=== PATIENT | female | born 1965 | race Caucasian/White ===

== ENCOUNTER 2023-07-20 22:09 | Emergency (ER) | payer BC, SELFPAY ==
[2023-07-20 22:13] VITALS: BP 156/82; PULSE 101; RESP 18; TEMP 36.6; O2SAT 100; BMI 24.3
[2023-07-20 22:24] VITALS: PULSE 84; O2SAT 96
[2023-07-20 22:25] VITALS: BP 155/81; PULSE 88; O2SAT 97
--- NOTE | 2023-07-20 22:26 | ED_ITS ---
HPI - Allergic Reaction General Chief complaint: Allergic Reaction Stated complaint: lips swelling, allergic reaction Time Seen by Provider: 07/20/23 22:10 Source: patient Mode of arrival: Ambulatory History of Present Illness HPI narrative: 58-year-old female nonsmoker with noncontributory medical history presents with a chief complaint of swelling of her lower lip that started a few hours ago. She states she has no swelling of her tongue, face or difficulty swallowing. No trouble breathing or cough. No rash or hives. No GI symptoms such as nausea, vomiting or diarrhea. She denies any new lotions, soaps or medications but stat es maybe the almond milk she had tinnitus something new for her. She takes no prescription medications. She states about 1 month ago she had a relatively similar situation but only had swelling of the right side of her upper lip with no other symptoms which eventually resolved without specific treatment other than [id number] Benadryl. She does admit that she took some Benadryl prior to her arrival tonight. Related Data Previous Rx's Medication Instructions Recorded prednisone 10 mg tablet See Rx Instructions .Route 07/21/23 .COMPLEX #30 tabs Allergies Allergy/AdvReac Type Severity Reaction Status Date / Time No Known Drug Allergies Allergy Verified 07/20/23 22:21 Review of Systems Review of Systems Narrative: GENERAL: Denies chills, fatigue, malaise, fever, sweats. HEENT: See HPIsee HPIDenies dyspnea, cough, wheezing, hemoptysis, sputum. CARDIOVASCULAR: Denies chest pain, palpitations, orthopnea, edema, GASTROINTESTINAL: Denies nausea, vomiting, abdominal pain, diarrhea, c onstipation, melena. : Denies dysuria, frequency, incontinence, hematuria, urinary retention. MUSCULOSKELETAL: denies weakness, joint pain, or bony pain SKIN: see HPI NEUROLOGIC: Denies weakness, headache, numbness, change in speech, confusion, seizures, incoordination. PSYCHIATRIC: No concerning psychosocial issues. 12 point review of systems is negative except for those stated above Patient History Social History Smoking Status: Never smoker Smoking Status: Never smoker alcohol intake frequency: a few times a month Substance Use Type: does not use Exam Narrative Exam Narrative: GENERAL: [58] year old patient appears stated age. Well-developed patient, in mild distress. HEAD: Atraumatic. Normocephalic. EYES: Pupils equal round and reactive. Extraocular motions intact. No scleral icterus. No injection or drainage. ENT: Moderate lower lip swelling, no face, tongue or throat involvement Nose without bleeding, purulent drainage. Throat without erythema, tonsillar hypertrophy or exudate. Airway patent. NECK: Trachea midline. Non tender CARDIOVASCULAR: Regular rate and rhythm without murmurs, gallops, or rubs. RESPIRATORY: Clear to auscultation. Breath sounds equal bilaterally. No wheezes, rales, or rhonchi. GASTROINTESTINAL: Abdomen soft, non-tender, nondistended. EXTREMITIES: No edema or joint tenderness. BACK: Nontender without deformity or crepitance. No flank tenderness. NEURO: AOx3. SKIN: No rash or erythema of visible areas Initial Vital Signs Initial Vital Signs: Vital Signs Temperature 97.9 F 07/20/23 22:13 Pulse Rate 101 H 07/20/23 22:13 Respiratory Rate 18 07/20/23 22:13 Blood Pressure 156/82 H 07/20/23 22:13 Pulse Oximetry 100 07/20/23 22:13 Oxygen Delivery Method Room Air 07/20/23 22:13 Course Orders Ordered: ED Orders 07/20/23 22:21 Complement C3 Stat Complement C4 Stat Famotidine (Famotidine 20 Mg/2 Ml Vial) 20 mg IV NOW IESHA Last Admin: 07/20/23 22:38 Dose: 20 mg Documented By: SARAH Discontinued Medications Dexamethasone (Dexamethasone 10 Mg/Ml Vial) 10 mg IV NOW ONE Stop: 07/20/23 22:22 Last Admin: 07/20/23 22:39 Dose: 10 mg Documented By: SARAH Tranexamic Acid 1,000 mg/ (Sodium Chloride) 100 mls @ 200 mls/hr IV NOW ONE Stop: 07/20/23 22:50 Last Infusion: 07/20/23 23:05 Dose: 0 mls/hr Documented By: Admin: 07/20/23 22:38 Dose: 200 mls/hr Documented By: SARAH Vital Signs Vital signs: Vital Signs - 8 hr 07/20/23 22:13 07/20/23 22:24 07/20/23 22:25 Temperature 97.9 F Pulse Rate 101 H 84 88 Respiratory Rate 18 Blood Pressure 156/82 H Pulse Oximetry 100 96 97 Oxygen Delivery Method Room Air 07/20/23 22:25 07/20/23 22:30 07/20/23 22:30 Temperature Pulse Rate 82 Respiratory Rate Blood Pressure 155/81 H 153/80 H Pulse Oximetry 97 Oxygen Delivery Method 07/20/23 23:00 07/20/23 23:00 Temperature Pulse Rate 80 Respiratory Rate Blood Pressure 154/70 H Pulse Oximetry 97 Oxygen Delivery Method MDM - Allergic Reaction MDM Narrative Medical decision making narrative: [58] year old patient presents with swelling of lower lip no other symptoms Multiple etiologies for patient's symptoms considered including, but not limited to: [Allergic reaction versus angioedema versus other] No prior Charts reviewed in our EMR Primary Historian: patient Labs reviewed and interpreted by myself: C3/C4 sent out Patient's symptoms improved over duration of stay with above-stated therapies. History and physical exam are reassuring, no obvious trigger, isolated to lower lip with no signs of anaphylaxis, no tongue, throat, no trouble swallowing or breathing, no rash or GI complaints. Multiple diagnoses considered including allergic reaction versus angioedema. Allergic reaction considered, especially given improvement of symptoms with above-stated therapies. No signs of anaphylaxis. Angioedema considered still, unlikely to be a histamine mediated angioedema given lack of more widespread symptoms. Bradycardia mediated considered, treatment with TXA based on this. She is observed for a few hours and has significant improvement in symptoms. Extensive return precautions discussed, patient encouraged to try to avoid almond milk in the event that it is a trigger, labs sent out but not needed for decisions tonight, no indication for further treatment or hospitalization. Prescription for prednisone sent to her pharmacy of choice Findings and discharge diagnosis discussed with patient/family followed by verbalization of understanding Return precautions discussed with patient/family whom verbalize understanding of diagnosis and plan Discharge Plan Departure Patient Disposition: Home Clinical Impression: Allergic reaction, Angioedema Instructions: Angioedema Activity Restrictions/Additional Instructions: *You have been diagnosed with [allergic reaction or angioedema] *What to do: *Please continue to take your regular medications as directed. [ x] New medication prescriptions sent to your pharmacy: [[facility]] [ ] New medication written as a paper prescription [ ] No new medications given *Please consider the routine use of over the counter antihistamines over the next few days 1. H1 blockers: Benadryl (Diphenhydramine), Zyrtec (Cetirizine), Lisa (Fexofenadine) or Claritin (Loratadine) along with, 2. H2 blockers: Famotidine or Cimetidine *If you can please avoid what triggered your reaction today *Please follow up with your primary care provider in 2-3 days, call for an appointment. Let them know you were seen in the Emergency Department and that we ask that you be seen in follow up. We will electronically transmit a record of today's note if your PCP is in our system *If you do not have a primary care provider please contact the [facility] Resource line at [phone]. They will ask some questions about your medical history and help get you set up with a doctor in the community. *Return to Emergency Department if you should have any new, worsening or concerning symptoms, such as swelling of tongue, throat, trouble breathing, or other concerning symptoms Prescriptions: New prednisone 10 mg tablet See Rx Instructions .ROUTE .COMPLEX Qty: 30 0RF Rx Instructions: Day 1,2,3: 40mg PO Daily Day 4,5,6: 30mg PO Daily Day 7,8,9: 20mg PO Daily Day 10,11,12: 10mg PO Daily #30 Stand Alone Forms: Patient Portal/API
[2023-07-20 22:30] VITALS: BP 153/80; PULSE 82; O2SAT 97
[2023-07-20] MEDS: FAMOTIDINE 20 MG/2 ML VIAL IV (22:38)
[2023-07-20] MEDS: TRANEXAMIC ACID 1,000 MG in SODIUM CHLORIDE 0.9% 100 ML 200 MG IV (22:38)
[2023-07-20] MEDS: DEXAMETHASONE 10 MG/ML VIAL IV (22:39)
[2023-07-20 23:00] VITALS: BP 154/70; PULSE 80; O2SAT 97
[2023-07-21 00:16] VITALS: BP 135/69; PULSE 76; RESP 20; O2SAT 96
[2023-07-22 05:28] LABS: Complement C3 105 mg/dL (82-167)
== END 2023-07-21 00:15 | disposition home or self-care (01) ==
PROVIDERS: Emergency Provider Emergency Medicine
DX: T78.40XA Allergy, unspecified, initial encounter (principal); T78.3XXA Angioneurotic edema, initial encounter
CPT/HCPCS: 36415; 86160; 96365; 96375; 99284; J1100

== ENCOUNTER 2023-12-11 08:17 | Day surgery (SDC) | payer BC, SELFPAY ==
[2023-12-11 08:44] VITALS: BP 134/78; PULSE 82; RESP 16; TEMP 36.7; O2SAT 98
[2023-12-11] MEDS: LACTATED RINGERS 1,000 ML 42 ML IV (08:48)
--- NOTE | 2023-12-11 09:25 | PM.HP.1 ---
History of Present Illness History of Present Illness Date Patient Seen: 12/11/23 Time Patient Seen: 09:25 Chief complaint: Screening Colonsocopy Narrative: Colon cancer screening, first colonoscopy, no significant family history or current symptoms. [facility] Social History Smoking Status: Never smoker alcohol intake: current Meds Home Medications and Allergies Home Medications Medication Instructions Recorded Confirmed Type cholecalciferol (vitamin D3) 25 25 mcg PO DAILY 12/11/23 12/11/23 History mcg (1,000 unit) capsule (Vitamin D3) multivitamin 1 tab PO DAILY 12/11/23 12/11/23 History Allergies Allergy/AdvReac Type Severity Reaction Status Date / Time No Known Drug Allergies Allergy Verified 12/11/23 08:37 Review of Systems Review of Systems ROS: Yes All systems reviewed with the patient and are negative except as otherwise documented Exam Vital Signs (past 8 hours): - 12/11/23 08:44 Temperature 98.1 F Pulse Rate 82 Respiratory Rate 16 Blood Pressure 134/78 Pulse Oximetry 98 Oxygen Delivery Method Room Air Oxygen Delivery Method Room Air Const General: cooperative, healthy appearing and comfortable [facility] Head: normocephalic and atraumatic Eyes General: appearance normal, both eyes and all related structures Sclera: sclerae normal Neck Neck: trachea midline and No JVD Resp Effort & Inspection: normal respiratory effort and able to speak in complete sentences Cardio Rate: regular rate Rhythm: regular rhythm GI Palpation: soft and No tender Skin General: elasticity normal and turgor normal Neuro General: patient alert, patient awake and patient oriented x3 Cognition: normal cognition Psych Appearance: grossly normal Mental Status: mental status grossly normal Judgment: judgment good Assessment & Plan Assessment & Plan narrative: colon cancer screening with colonoscopy using anesthesia Time Spent With Patient Time with patient: less than 30 minutes
--- NOTE | 2023-12-11 09:42 | PM.OP.COLON ---
Operative Date/Time/Diagnoses Date of procedure: 12/11/23 Time of procedure: 09:42 Pre-op diagnosis: Colon cancer screening Post-op diagnosis: same Procedure & Clinicians Study performed: Colonoscopy with anesthesia Same procedure as scheduled: Yes Indications: Colon cancer screening Surgeon: Lizet Holguin Procedure Notes Procedure in detail: Preop diagnosis: Colon cancer screening Postop diagnosis: Same Operative procedure: Colonoscopy with anesthesia Surgeon: Radha Holguin MD Findings: Normal colonoscopy. No polyps identified Procedure: Patient placed in lateral position. Rectal exam performed showing normal tone no masses. External hemorrhoidal tags with inflammatory anal polyp. Colonoscope inserted into the rectum and advanced to ileocecal valve with minimal difficulty. Insufflation extraction of the scope including retroflex in the rectum was performed without complication. Impression: Normal colonoscopy. No polyps identified Plan: Repeat colonoscopy in 10 years unless otherwise indicated by change in clinical condition Specimen(s): none sent Complications: none Post-procedure Recommendations: Colonoscopy in 10 years Follow up: as needed Disposition: PACU
[2023-12-11 09:44] VITALS: BP 96/58; PULSE 73; RESP 11; TEMP 36.2; O2SAT 95
[2023-12-11 09:49] VITALS: BP 90/52; PULSE 68; RESP 11; O2SAT 96
[2023-12-11 09:55] VITALS: BP 91/60; PULSE 67; RESP 11; O2SAT 97
[2023-12-11 09:59] VITALS: BP 117/65; PULSE 72; RESP 12; TEMP 37; O2SAT 97
== END 2023-12-11 10:28 | disposition home or self-care (01) ==
PROVIDERS: PCP Physician Assistant; Referring Provider Surgery; Visit Provider Surgery
PROC: 0DJD8ZZ Inspection of Lower Intestinal Tract, Via Natural or Artificial Opening Endoscopic (ICD-10-PCS; CPT 45378; principal; 2023-12-11 09:15)
DX: Z12.11 Encounter for screening for malignant neoplasm of colon (principal)
CPT/HCPCS: 45378; J2704

== ENCOUNTER → 2025-09-14 12:34 | Outpatient (CLI) | payer BC, SELFPAY ==
--- NOTE | 2025-09-14 12:36 | DI.RAD.S_ITS ---
PROCEDURE: XR HAND RT MIN 3V INDICATIONS: Ground level fall TECHNIQUE: 3 views of the hand(s) acquired. COMPARISON: None. FINDINGS: Bones: Minimally displaced 5th proximal phalangeal fracture Soft tissues: No suspicious soft tissue calcifications. IMPRESSION: Fifth proximal phalangeal fracture. Approved by: Tenzin Houston M.D. on 09/14/2025 at 12:36
--- NOTE | 2025-09-14 12:36 | DI.RAD.S_ITS ---
PROCEDURE: XR NASAL BONES MIN 3V INDICATIONS: Ground level fall TECHNIQUE: 3 views of the nasal bones acquired. COMPARISON: None. FINDINGS: Bones: Comminuted nondisplaced fracture through the nasal tip Soft tissues: No suspicious soft tissue calcifications. IMPRESSION: Nondisplaced nasal bone fracture Approved by: Tenzin Houston M.D. on 09/14/2025 at 12:29
== END ==
LOC: RAD 12:34
PROVIDERS: PCP Physician Assistant; Referring Provider Nurse Practitioner Family; Visit Provider Nurse Practitioner Family
DX: S02.2XXA Fracture of nasal bones, initial encounter for closed fracture (principal); S62.616A Displaced fracture of proximal phalanx of right little finger, initial encounter for closed fracture; W18.30XA Fall on same level, unspecified, initial encounter
CPT/HCPCS: 70160; 73130